=== PATIENT | female | born 1955 | race Caucasian/White ===

== ENCOUNTER 2023-02-20 14:10 | Emergency (ER) | payer MEDICARE, BC, SELFPAY ==
[2023-02-20 14:32] VITALS: BP 124/84; PULSE 85; RESP 16; TEMP 36.3; O2SAT 95
--- NOTE | 2023-02-20 14:49 | ED.EAR ---
HPI - Ear Problem General Chief complaint: Ear Stated complaint: hearing prob History of Present Illness HPI Narrative: 67-year-old female presents to the [facility] today complaining of right intermittent ear pain and difficulty hearing out of her right ear. Patient stated the pain started on in the evening while she was just sitting at home. Patient denies any recent swimming or being in any dirty water. Patient states since then she has had increased ringing in her right ear and hearing loss. Patient states that is gotten worse to the point that she has developed dizziness when she starts walking. Patient denies any congestion, sore throat, fever, chills, or any other complaints. Patient has been using Q-tips at home with minimal relief. Related Data Home Medications Medication Instructions Recorded Confirmed diphenhydramine HCl 25 mg tablet 50 mg PO QHS 11/24/22 02/20/23 (Benadryl Allergy) docusate sodium 100 mg capsule 200 mg PO BID 11/24/22 02/20/23 magnesium oxide 250 mg PO DAILY 11/24/22 02/20/23 dwacrqor-apcl-cdbwe acid 240 2 tablet PO DAILY 11/24/22 02/20/23 mcg-vit K 120 xcy-mphwag-fncs 293 tablet (Alive Women's 50 Plus (fruit-veg blend)) potassium gluconate 595 mg (99 mg) 595 mg PO BID 11/24/22 02/20/23 tablet Allergies Allergy/AdvReac Type Severity Reaction Status Date / Time ropinirole Allergy Unknown Verified 02/20/23 14:29 Review of Systems Review of Systems: CONSTITUTIONAL: Denies fever, chills, or sweats. EYES: Denies visual changes, redness, or discharge. ENT: Positive for right ear otalgia decreased hearing in the right ear. Patient also reports tinnitus to the right ear. CARDIOVASCULAR: Denies chest pain, palpitations, or edema. RESPIRATORY: Denies cough or dyspnea. GASTROINTESTINAL: Denies abdominal pain, nausea, vomiting, or diarrhea. GENITOURINARY: Denies dysuria or hematuria. SKIN: Denies rash or itching. MUSCULOSKELETAL: Denies back pain, joint pain, or myalgia. NEUROLOGIC: Denies headache, numbness, or weakness. Reports dizziness Pertinent positives per HPI. [facility] Social History Social History (Updated 11/24/22 @ 09:23 by Leatha Mcclelland, [facility]) Smoking packs per day: 0.5 Smoking cigarettes per day: 10.0 Years smoked: 45 Smoking pack-years: 22.50 Smoking status: Current every day smoker Tobacco type: cigarettes Lack of Transportation: No Lack of Food: Never True Current Housing: I Have Housing Concerned About Future Housing: No Difficulty Paying Gas/Electric Bills: No Difficulty Paying for Meds: No Currently Unemployed: No Education: Bachelor's Degree Difficulty w/ Childcare or Family Care: No Comments At the time of my signature, I reviewed and agree with the nursing past medical, surgical, social, and family history. There is no relevant family history pertinent to the patient complaint. Exam Narrative: GENERAL: This is a well-nourished, well-developed patient, in no apparent distress. HEAD: normocephalic, atraumatic. EYES: Sclera clear/white. Vision is grossly intact. EARS: External ears normal, left auditory canal clear without drainage day. Right auditory canal is mild erythema neck with cerumen impaction, unable to visualize the tympanic membrane. left tympanic membrane is pearly mobley with a good cone of light without perforation. NOSE: External nose normal with no obvious nasal discharge, nares without redness, no rhinorrhea. THROAT: Mucous membranes moist, posterior pharynx clear. NECK: Neck supple, non-tender without lymphadenopathy, masses or thyromegaly. CARDIOVASCULAR: Regular rate and rhythm without murmurs, gallops, or rubs. RESPIRATORY: Clear to auscultation. Breath sounds equal bilaterally. No wheezes, rales, or rhonchi. GASTROINTESTINAL: Abdomen soft, non-tender, nondistended. Bowel sounds are active. No hepato-splenomegaly, or palpable masses. No guarding. SKIN: warm, intact with no susp
== END 2023-02-20 15:12 | disposition home or self-care (01) ==
PROVIDERS: Emergency Provider Nurse Practitioner Family
DX: H60.501 Unspecified acute noninfective otitis externa, right ear (principal); H61.21 Impacted cerumen, right ear; F17.210 Nicotine dependence, cigarettes, uncomplicated
CPT/HCPCS: 69210; 99213; G0463

== ENCOUNTER 2023-03-29 10:13 | Outpatient (CLI) | payer BC, MEDICARE, SELFPAY ==
[2023-03-29 19:24] LABS: Iron 103 ug/dL (37-170)
[2023-03-29 19:28] LABS: Percent Iron Saturation 28 % (20-50)
[2023-03-29 19:48] LABS: Vitamin D 25 Hydroxy 76.8 ng/mL
[2023-03-29 19:49] LABS: Alanine Aminotransferase 25 U/L (6-35); Albumin Level 3.9 g/dL (3.5-5.1); Alkaline Phosphatase 80 U/L (38-126); Anion Gap 4 mmol/L (8-16); Aspartate Amino Transferase 25 U/L (14-36); Bilirubin,Total 0.4 mg/dL (0.2-1.3); Blood Urea Nitrogen 11 mg/dL (7-17); Calcium 9.4 mg/dL (8.4-10.2); Carbon Dioxide 30 mmol/L (22-30); Chloride 98 mmol/L (98-107); Cholesterol 302 mg/dL (0-200); Estimated Glomerular Filt Rate > 60; Glucose 82 mg/dL (65-110); HDL Direct 52 mg/dL; Potassium 4.4 mmol/L (3.4-5.0); Sodium 132 mmol/L (137-145); Triglycerides 96 mg/dL (<150)
[2023-03-29 20:00] LABS: LDL Cholesterol Direct 188 mg/dL
[2023-03-29 20:30] LABS: Basophils Absolute Auto 0.1 K/mm3 (0.0-0.1); Basophils Percent Auto 1.1 % (0.2-1.2); Eosinophils Absolute Auto 0.3 K/mm3 (0-0.3); Hematocrit 40.3 % (37.0-47.0); Hemoglobin 13.1 g/dL (12.0-15.0); Immature Granulocyte Absolute 0.02 K/mm3 (0.00-0.031); Immature Granulocyte Percent A 0.3 % (0-0.5); Lymphocytes Absolute Auto 2.37 K/mm3 (0.9-3.2); Lymphocytes Percent Auto 31.6 % (18.3-44.2); Mean Corpuscular HGB Conc 32.5 g/dl (32-36); Mean Corpuscular Hemoglobin 33.1 pg (26-34); Mean Corpuscular Volume 101.8 fl (80-100); Mean Platelet Volume 10.2 fl (7.4-10.4); Monocytes Absolute Auto 0.6 K/mm3 (0.1-0.6); Monocytes Percent Auto 7.3 % (2.6-8.5); Neutrophils Absolute Auto 4.2 K/mm3 (1.3-6.7); Neutrophils Percent Auto 55.7 % (45.5-73.1); Platelet Count Result 326 k/mm3 (150-375); Red Blood Count 3.96 M/mm3 (4.2-5.4); Red Cell Distribution Width 12.3 % (11.5-14.5); White Blood Count 7.5 K/mm3 (4.5-10.0)
[2023-03-31 22:29] LABS: Amphetamines NEGATIVE ng/mL (<500); Barbiturates NEGATIVE ng/mL (<300); Benzodiazepines POSITIVE ng/mL (<100); Cocaine Metabolite NEGATIVE ng/mL (<150); Marijuana Metabolite NEGATIVE ng/mL (<20); Methadone Metabolite NEGATIVE ng/mL (<100); Opiates NEGATIVE ng/mL (<100); Oxidant NEGATIVE mcg/mL (<200); pH 7.4 (4.5-9.0)
== END 2023-03-29 10:14 | disposition home or self-care (01) ==
PROVIDERS: Visit Provider Nurse Practitioner
DX: Z13.21 Encounter for screening for nutritional disorder (principal); F41.9 Anxiety disorder, unspecified; G25.81 Restless legs syndrome; Z13.220 Encounter for screening for lipoid disorders; Z79.899 Other long term (current) drug therapy
CPT/HCPCS: 36415; 80053; 80061; 80307; 82306; 82728; 83540; 83550; 85025

== ENCOUNTER 2023-06-10 17:10 | Emergency (ER) | payer BC, MEDICARE, SELFPAY ==
--- NOTE | ~2023-06-10 | XR_ITS ---
EXAMINATION: XR chest 2V DATE: 06/10/2023 17:50 INDICATION: Cough and congestion TECHNIQUE: PA and lateral views of the chest are obtained. COMPARISON: None available FINDINGS: There are minimal airspace opacities of the lung bases. No pleural effusion or pneumothorax . The cardiomediastinal silhouette is normal. There is moderate thoracic spondylosis. IMPRESSION: 1. Minimal bibasilar airspace opacities, consistent with atelectasis versus pneumonia. Reviewed, dictated and finalized at location F. IMPRESSION: 1. Minimal bibasilar airspace opacities, consistent with atelectasis versus pne umonia.
--- NOTE | 2023-06-10 17:12 | ED.GENADULT ---
HPI - General Adult General Chief complaint: Upper Respiratory Infection Stated complaint: Congestion, Cough, Lethargic, Headache Time Seen by Provider: 06/10/23 17:35 Source: patient, RN notes reviewed and old records reviewed Mode of arrival: ambulatory Limitations: no limitations History of Present Illness HPI narrative: 67-year-old female presents to the [facility] with complaints of productive cough, congestion, headache, fatigue. Denies fever Patient is a smoker Reports at home covid test Tuesday when symptoms started. Symptoms x4 days Onset (ago): day(s) (4) Related Data Home Medications Medication Instructions Recorded Confirmed diphenhydramine HCl 25 mg tablet 50 mg PO QHS 11/24/22 06/10/23 (Benadryl Allergy) docusate sodium 100 mg capsule 200 mg PO BID 11/24/22 06/10/23 magnesium oxide 250 mg PO DAILY 11/24/22 06/10/23 cuilzwje-ouoi-fhgji acid 240 2 tablet PO DAILY 11/24/22 06/10/23 mcg-vit K 120 nre-bftwlk-drlg 293 tablet (Alive Women's 50 Plus (fruit-veg blend)) potassium gluconate 595 mg (99 mg) 595 mg PO BID 11/24/22 06/10/23 tablet cholecalciferol (vitamin D3) 125 125 mcg PO DAILY 04/06/23 06/10/23 mcg (5,000 unit) capsule cyclobenzaprine 10 mg tablet 10 mg PO Q8H PRN muscle spasm 04/06/23 06/10/23 oxaprozin 600 mg tablet 600 mg PO BID PRN Pain (Scale 04/06/23 06/10/23 Score 1-3) Allergies Allergy/AdvReac Type Severity Reaction Status Date / Time ropinirole Allergy Unknown Verified 06/10/23 17:27 Review of Systems Review of Systems: All systems reviewed & are unremarkable except as noted in HPI and below Constitutional: Constitutional: Reports no additional constitutional complaints Eyes: Eyes: Reports no additional eye complaints ENT: Reports as per HPI Cardiovascular: Cardiovascular: Reports no additional cardiovascular complaints, Denies chest pain and Denies dyspnea Respiratory: Respiratory: Reports as per HPI, Reports chest congestion, Reports cough and Denies dyspnea Gastrointestinal: Gastrointestinal: Reports no additional gastrointestinal complaints, Denies abdominal pain, Denies nausea and Denies vomiting Musculoskeletal: Musculoskeletal: Reports no additional musculoskeletal complaints Integumentary/Breasts: Skin/Breast: Reports system reviewed and no additional complaints, except as docu Neurologic: Reports system reviewed and no additional complaints, except as documented Psychiatric: Psychiatric: Reports no additional psychiatric complaints Allergic/Immunologic: Allergic/Immunologic: Reports no additional allergic/immunologic complaints PMFSH Past Medical History Medical History (Updated 06/12/23 @ 13:57 by Joycelyn Bah APRN) Anxiety Depression Hyperlipidemia Restless leg syndrome Social History Social History Smoking packs per day: 0.5 Smoking cigarettes per day: 10.0 Years smoked: 45 Smoking pack-years: 22.50 Smoking status: Current every day smoker Tobacco type: cigarettes Lack of Transportation: No Lack of Food: Never True Current Housing: I Have Housing Concerned About Future Housing: No Difficulty Paying Gas/Electric Bills: No Difficulty Paying for Meds: No Currently Unemployed: No Education: Bachelor's Degree Difficulty w/ Childcare or Family Care: No Comments At the time of my signature, I reviewed and agree with the nursing past medical, surgical, social, and family history. There is no relevant family history pertinent to the patient complaint. Exam Const: General: cooperative, healthy appearing, comfortable, no acute distress, well developed, alert and well nourished Nutritional Appearance: well nourished Orientation/consciousness: patient oriented x3 Limitations: no limitations HENMT: Head: normal to inspection Ears: hearing grossly normal bilaterally, external ears normal, TM's normal bilaterally, EAC's normal, mastoids normal and no peria
[2023-06-10 17:24] VITALS: BP 132/85; PULSE 95; RESP 18; TEMP 36.2; O2SAT 94
== END 2023-06-10 18:29 | disposition home or self-care (01) ==
PROVIDERS: Emergency Provider Nurse Practitioner; PCP Internal Medicine
DX: J18.9 Pneumonia, unspecified organism (principal); Z20.822 Contact with and (suspected) exposure to COVID-19; F17.210 Nicotine dependence, cigarettes, uncomplicated; E78.5 Hyperlipidemia, unspecified; G25.81 Restless legs syndrome
CPT/HCPCS: 71046; 87426; 87804; 99213; C9803; G0463

== ENCOUNTER 2024-04-11 09:32 | Outpatient (CLI) | payer MEDICARE, SELFPAY ==
[2024-04-11 17:57] LABS: Cholesterol 254 mg/dL (0-200); HDL Direct 53 mg/dL; Triglycerides 97 mg/dL (<150)
[2024-04-11 18:07] LABS: LDL Cholesterol Direct 155 mg/dL
== END 2024-04-11 09:33 | disposition home or self-care (01) ==
LOC: ANHGOSHLAB 09:34
PROVIDERS: PCP Internal Medicine; Visit Provider Clinical Nurse Specialist
DX: E78.5 Hyperlipidemia, unspecified (principal); G25.81 Restless legs syndrome; R71.8 Other abnormality of red blood cells
CPT/HCPCS: 36415; 80061; 82728

== ENCOUNTER 2024-04-18 15:55 | Outpatient (CLI) | payer MEDICARE, SELFPAY ==
[2024-04-18 19:47] LABS: Basophils Absolute Auto 0.1 K/mm3 (0.0-0.1); Basophils Percent Auto 0.9 % (0.2-1.2); Eosinophils Absolute Auto 0.2 K/mm3 (0-0.3); Eosinophils Percent Auto 2.8 % (0-4.4); Hematocrit 42.2 % (37.0-47.0); Immature Granulocyte Absolute 0.03 K/mm3 (0.00-0.031); Immature Granulocyte Percent A 0.4 % (0-0.5); Lymphocytes Absolute Auto 3.05 K/mm3 (0.9-3.2); Lymphocytes Percent Auto 37.7 % (18.3-44.2); Mean Corpuscular HGB Conc 33.2 g/dl (32-36); Mean Corpuscular Hemoglobin 33.2 pg (26-34); Mean Platelet Volume 10.4 fl (7.4-10.4); Monocytes Absolute Auto 0.7 K/mm3 (0.1-0.6); Monocytes Percent Auto 8.8 % (2.6-8.5); Neutrophils Percent Auto 49.4 % (45.5-73.1); Platelet Count Result 345 k/mm3 (150-375); Red Blood Count 4.22 M/mm3 (4.2-5.4); Red Cell Distribution Width 12.4 % (11.5-14.5); White Blood Count 8.1 K/mm3 (4.5-10.0)
[2024-04-18 21:31] LABS: Alanine Aminotransferase 25 U/L (6-35); Albumin Level 4.8 g/dL (3.5-5.1); Alkaline Phosphatase 78 U/L (38-126); Anion Gap 11 mmol/L (4-12); Aspartate Amino Transferase 38 U/L (14-36); Bilirubin,Total 0.6 mg/dL (0.2-1.3); Blood Urea Nitrogen 7 mg/dL (7-17); Calcium 9.9 mg/dL (8.4-10.2); Carbon Dioxide 29 mmol/L (22-30); Chloride 95 mmol/L (98-107); Estimated Glomerular Filt Rate > 60; Glucose 89 mg/dL (65-110); Potassium 3.8 mmol/L (3.4-5.0); Sodium 135 mmol/L (137-145)
[2024-04-18 22:20] LABS: Vitamin D 25 Hydroxy 56.5 ng/mL
[2024-04-28 07:14] LABS: Apolipoprotein B 135 mg/dL
== END 2024-04-18 15:56 | disposition home or self-care (01) ==
LOC: ANHGOSHLAB 15:57
PROVIDERS: PCP Internal Medicine; Visit Provider Nurse Practitioner
DX: E55.9 Vitamin D deficiency, unspecified (principal); E78.5 Hyperlipidemia, unspecified; E87.1 Hypo-osmolality and hyponatremia; G25.81 Restless legs syndrome
CPT/HCPCS: 36415; 80053; 82172; 82306; 84443; 85025

== ENCOUNTER 2024-09-27 11:38 | Emergency (ER) | payer MEDICARE, SELFPAY ==
--- NOTE | 2024-09-27 11:42 | ED_ITS ---
HPI - URI/Sore Throat General Chief Complaint: Upper Respiratory Infection Stated Complaint: flu symptoms Time Seen by Provider: 09/27/24 11:43 Source: patient Mode of arrival: ambulatory Limitations: no limitations History of Present Illness HPI Narrative: Heidi is a 68-year-old female patient presenting to the clinic today with complaints of flu-like symptoms x1 days. She reports she has been having body aches, cough, nasal drainage, and weakness. Symptoms started yesterday. Denies any known fever or chills. States she feels more short of breath with exertion. Denies any chest pain. She denies any history of COPD or asthma but she is a current smoker. Smokes half a pack per day for over 20 years MD elicited complaint: cough, nasal congestion and other (Weakness, headache, body aches, nasal drainage) Related Data Home Medications ?Medication ?Instructions ?Recorded ?Confirmed ?Last Taken ?Type diphenhydramine HCl 25 mg tablet 50 mg PO QHS 11/24/22 04/18/24 Unknown History (Benadryl Allergy) docusate sodium 100 mg capsule 200 mg PO BID 11/24/22 04/18/24 Unknown History magnesium oxide 250 mg PO DAILY 11/24/22 04/18/24 Unknown History ikgipkdm-mthu-gcspf acid 240 2 tablet PO DAILY 11/24/22 04/18/24 Unknown History mcg-vit K 120 gwj-fckzro-vaby 293 tablet (Alive Women's 50 Plus (fruit-veg blend)) potassium gluconate 595 mg (99 mg) 595 mg PO BID 11/24/22 04/18/24 Unknown History tablet cholecalciferol (vitamin D3) 125 125 mcg PO DAILY 04/06/23 04/18/24 Unknown History mcg (5,000 unit) capsule oxaprozin 600 mg tablet 600 mg PO BID PRN Pain (Scale 04/06/23 04/18/24 Unknown History Score 1-3) Allergies Allergy/AdvReac Type Severity Reaction Status Date / Time ropinirole Allergy Unknown Verified 09/27/24 11:47 Review of Systems Review of Systems: Pertinent positives per HPI. Patient denies any fever, chills, rash, headache, visual changes, dizziness, chest pain, palpitations, nausea, vomiting, diarrhea, constipation, abdominal pain, or any urinary issues. [facility] Past Medical History Medical History Hyperlipidemia Depression Anxiety Restless leg syndrome Social History Social History Smoking packs per day: 0.5 Smoking cigarettes per day: 10.0 Years smoked: 45 Smoking pack-years: 22.50 Smoking status: Current every day smoker Tobacco type: cigarettes Lack of Transportation: No Lack of Food: Never True Current Housing: I Have Housing Concerned About Future Housing: No Difficulty Paying Gas/Electric Bills: No Difficulty Paying for Meds: No Currently Unemployed: No Education: Bachelor's Degree Difficulty w/ Childcare or Family Care: No Comments At the time of my signature, I reviewed and agree with the nursing past medical, surgical, social, and family history. There is no relevant family history pertinent to the patient complaint. Exam Narrative: General: Well-developed, well nourished, in no apparent distress Head: Normocephalic, atraumatic Eyes: Pupils equally round and reactive to light bilaterally, EOM intact, sclera and conjunctive clear, no discharge, lids normal Ears: TMs intact and clear, ear canals clear, no drainage, grossly hearing normal. Nose: Nares patent, clear nasal discharge, no inflammation, no sinus tenderness. Mouth: Oral pharynx without lesions or masses, good dentition, MMM. Neck: Supple, trachea midline, no enlargement of anterior or posterior cervical nodes, no thyroid masses or goiter palpable. Cardio: Regular rate and rhythm, s1 and s2 normal, no murmur appreciated. Resp: Faint wheezing and rhonchi, no rales or rubs Course Course Emergency Course: Portions of this record may have been created with voice recognition software. Level of Care: Express Care Visit Vital Signs Vital signs: Vital Signs Temperature 36.0 C L 09/27/24 11:46 Pulse Rate 88 09/27/24 11:46 Respiratory Rate 18 09/27/24 11:46 Blood Pressure 136/72 09/27/24 11:46 Pulse Oximetry 96 09/27/24 11:46 Oxygen Delivery Room Air 09/27/24 11:46 Temperature 36.0 C L 09/27/24 11:46 Pulse Rate 88 09/27/24 11:46 Respiratory Rate 18 09/27/24 11:46 Blood Pressure 136/72 02/13/25 11:46 Pulse Oximetry 96 09/27/24 11:46 Oxygen Delivery Room Air 09/27/24 11:46 Vital signs reviewed MDM - URI/Sore Throat MDM Narrative Medical decision making narrative: At the time of visit patient is resting comfortably on the exam table. Patient appears to be nontoxic. Labs: Influenza and COVID testing was performed all testing was negative. Plan: I suspect patient has bronchitis. Prescription for prednisone, azithromycin, and albuterol inhaler was sent to the pharmacy. Supportive measures were discussed with the patient and they voiced understanding discharge instructions and agrees to treatment plan. Return precautions reviewed. Differential Diagnosis Differential diagnosis: Likely upper respiratory infection, otitis media, sinusitis, viral infection, bronchitis, influenza, pharyngitis and other (COVID) Lab Data Labs: Lab Results 09/27/24 Range/Units 12:10 POC Influenza A Ag Negative (Negative) POC Influenza B Ag Negative (Negative) POC SARS CoV-2 Ag Negative (Negative) Discharge Plan Discharge Clinical Impression: Bronchitis Patient Disposition: Home, Self-Care Condition: Stable Instructions: Antibiotic Form, Acute Bronchitis (ED) Additional Instructions: COVID and influenza testing was negative in the clinic today Take medications as prescribed-albuterol inhaler, prednisone, azithromycin May take DayQuil/NyQuil for symptoms. Increase fluids and stay well hydrated Tylenol/motrin for pain/fever Flonase and OTC antihistamines as directed Vicks vapor rub to open sinuses Sinus rinses for congestion Cepacol spray, cough drops, throat lozenges, warm tea with honey/lemon, gargle salt water to soothe throat BRAT diet for diarrhea Clear liquids x 24 hours then advance as tolerated for nausea/vomiting Go to the ED if you develop a worsening in your condition- high fever not controlled by Tylenol or Motrin, dehydration, weakness, lethargy, shortness of breath, or chest pain. Follow up with your PCP in 3-5 days if symptoms persist. Patient Language: Malian Prescriptions: New prednisone 20 mg tablet 40 mg PO DAILY 5 Days Qty: 10 0RF azithromycin 250 mg tablet See Rx Instructions .ROUTE .COMPLEX Qty: 6 0RF Rx Instructions: For 250 mg dose pack: take 500 mg today (day 1), then 250 mg for 4 days (days 2-5) albuterol sulfate 90 mcg/actuation HFA aerosol inhaler 2 puff inhalation Q4-6H PRN (Reason: shortness of breath or wheezing) 30 Days Qty: 8.5 0RF No Action (DME) Aerochamber MV Spacer See Rx Instructions .Route Qty: 1 0RF Rx Instructions: As directed cholecalciferol (vitamin D3) 125 mcg (5,000 unit) capsule 125 mcg PO DAILY oxaprozin 600 mg tablet 600 mg PO BID PRN (Reason: Pain (Scale Score 1-3)) diphenhydramine HCl [Benadryl Allergy] 25 mg tablet 50 mg PO QHS docusate sodium 100 mg capsule 200 mg PO BID potassium gluconate 595 mg (99 mg) tablet 595 mg PO BID magnesium oxide 250 mg magnesium tablet 250 mg PO DAILY Alive Women's 50 Plus (blend) 240-120-300 mcg tablet 2 tablet PO DAILY albuterol sulfate 90 mcg/actuation HFA aerosol inhaler 1 puff inhalation Q4H PRN (Reason: shortness of breath or wheezing) Qty: 8.5 1RF pantoprazole 40 mg tablet,delayed release (DR/EC) 40 mg PO DAILY Qty: 90 0RF Nexletol 180 mg tablet 180 mg PO DAILY Qty: 90 0RF Rx Instructions: PLEASE HAVE LABS DONE FOR FURTHER REFILLS clonazepam 0.5 mg tablet 0.5 mg PO QHS PRN (Reason: sleep) Qty: 30 0RF Rx Instructions: administer 30 minutes before bedtime Trintellix 10 mg tablet 10 mg PO DAILY Qty: 90 0RF Follow-up/Referrals: Sugey Lopez [employer] [Primary Care Provider] - Time of Disposition: 12:11 Quality NIHSS Nursing Documentation ED NIHSS nursing documentation: reviewed/agree
--- OUTSIDE RECORDS SUMMARY | 2024-09-27 11:42 | XMS_ITS | Continuity of Care Document ---
Author Organization [facility] Address [address] [place] [address] Phone Care Team Providers Care Financial Analyst Accountant Name Role Phone Gianhussain Miguel MARIN Unavailable Unavailable Allergies, Adverse Reactions, Alerts Substance Reaction Status Criticality adhesive tape Active No Information gabapentin Active No Information Medications Medication Instructions Dosage Effective Dates (start - stop) Status Comments diclofenac sodium 50 mg tablet,delayed release take 1 tablet by oral route 1 times every day - Active Daypro 600 mg tablet take 1 tablet by oral route every day 600 MG - Active Devils Elbow 5 mg-325 mg tablet take 1 tablet by oral route every 6 hours as needed for pain - Active Ultram 50 mg tablet take 1 tablet by oral route every 6 hours as needed - Active Voltaren Gel/5 Pack Topical CREAM (GM) APPLY 4G TO AFFECTED AREA 2 X DAILY - Active XANAX (unknown strength) Not Available - Active LEXAPRO (unknown strength) take 10 milliliter by oral route every day Not Available - Active FAMOTIDINE (unknown strength) infuse by intravenous route every 12 hours Not Available - Active CLONAZEPAM (unknown strength) take 1 tablet by oral route 3 times every day Not Available - Active ESCITALOPRAM OXALATE (unknown strength) take 10 milliliter by oral route every day Not Available - Active POTASSIUM GLUCONATE (unknown strength) Not Available - Active MP MAGNESIUM (unknown strength) Not Available - Active VITAMIN D2 (unknown strength) take 1 capsule by oral route every week Not Available - Active Procedures Procedure Date Spine Xray Lumbosacral Min Of 4 Views Ja Office/outpatient visit,est, mod 2014 Office/outpatient visit,est, mod 2012 MRI Lumbar Spine X-ray exam of pelvis, 1-2 views 013 X-ray Exam Of Hip, Complete 3+ Views Mar X-ray exam of neck spine2-3 views Office/outpatient visit,est, mod 2012 X-ray exam of foot, complete No Charge Xray Office/outpatient visit,est, mod 2010 Dual Energy X-ray Absorptimetry (DXA) Lester ne Density Physical therapy evaluation Ultrasound, each 15 minutes Physical Tx excercises each 15 min Ultrasound, each 15 minutes Office/outpatient visit,est, low 2009 X-ray exam of shoulder, complete 2009 Office/outpatient visit,est, low 2006 Office/outpatient visit,est, mod 2006 Office/outpatient visit,new, [facility] 2006 X-ray exam of humerus, 2+ views 007 X-ray exam of forearm, 2views 7 Office/outpatient visit,new, [facility] 2006 Advance Directives Directive Yes / No Effective Date File Name No Information Encounters Encounter Description Practice Location Reason(s) For Visit Diagnoses Date Provider Providers Copied on Encounter [facility], [address] [place] [address], [id number], tel:[phone] [facility] No Information 5-201 5 Koth Miguel. [address], [place], [place], [id number] , [place]. tel:[phone] Office/outpat ient visit,est, mod [facility], [address] [place] [address], [id number], tel:[phone] [facility] lumbar spine (chief complaint) Lumbago - Low Back PainLumbar strain 7-201 5 Koth Miguel. [address], [place], [place], [id number] , . tel:[phone] [facility], [address] [place] [address], [id number], tel:[phone] [facility] No Information Jul-2 3 Mathieu Diaz. [address] [place] [address], [id number] , . tel:[phone] Office/outpat ient visit,est, mod [facility], [address] [place] [address], [id number], tel:[phone] [facility] lumbar spine pain (chief complaint) Lumbago - Low Back Pain Sep-0 3 3 Uriel Francis. [address] [place] [address], [id number] , . tel:[phone] [facility], [address] [place] [address], [id number], tel:[phone] [facility] Lumbago - Low Back PainScoliosis, Idiopathic (Kyphoscoliosi s) Mar- 2- 3 Jeanine Tay. [address] [place] [address], [id number] , . [phone] Referring Provider: Jasvir Busby, [address] [place] [address], [id number] . tel:[phone] Office/outpat ient visit,est, [facility], [address] [place] [address], [id number], tel:[phone] [facility] Billing ReviewBilling ReviewScoliosi s, Idiopathic (Kyphoscoliosi s)Lumbago - Low Back Pain Mar-0 6 3 Jeanine Tay. [address] [place] [address], [id number] , . [phone] [facility], [address] [place] [address], [id number], tel:[phone] [facility] No Information Sep-0 5-201 2 Mariya Forman. [address] [place] [address], [id number] , . tel:[phone] Referring Provider: Ana Yi, [address] [facility], [place], [address] . tel:[phone] [facility], [address] [place] [address], [id number], tel:[phone] [facility] No Information Mar-0 6201 2 Mariya Forman. [address] [place] [address], [id number] , . tel:[phone] Referring Provider: Ana Yi, [address], [place], [address] . tel:[phone] Office/outpat ient visit,[facility], [facility], [address] [place] [address], [id number], tel:[phone] [facility] No Information Nov-0 1 Mariya Forman. [address] [place] [address], [id number] , [place]. tel:[phone] [facility], [address] [place] [address], [id number], tel:[phone] [facility] No Information Nov0 9201 0 Ricardo Forman. [address] [place] [address], [id number] , . tel:[phone] Office/outpat ient visit,[facility], [address] [place] [address], [id number], tel:[phone] [facility] No Information Nov0 8201 0 Ricardo Forman. [address] [place] [address], [id number] , . tel:[phone] Office/outpat ient visit,[facility], [address] [place] [address], [id number], tel:[phone] [facility] No Information 200 7 Sarah Fernandes. [address] [place], [place], [id number] , . tel: [phone] Office/outpat ient visit,[facility], [address] [place] [address], [id number], tel:[phone] [facility] No Information 7 Ricardo Forman. [address] [place], [place], [id number] , . tel:[phone] Office/outpat ient visit,[facility], [address] [place] [address], [id number], tel:[phone] [facility] No Information 7 Ricardo Forman. [address] [place], [place], [id number] , . tel:[phone] Office/outpat ient visit,[facility], [address] [place] [address], [id number], tel:[phone] [facility] No Information 7 Sarah Fernandes. [address] [place], [place], [id number] , [place]. tel: [phone] Family History Family Member Type Diagnosis Age At Onset Mother Problem (finding) Maternal history of marino betes mellitus Father Problem (finding) Cancer, unknown Payers Payer name Insurance type Covered green party ID Authorlalaa ana laura(s) [employer] Of [facility] [id number] Social History Type Description Quantity Date Captured Comments Sex Female Smoking Status No Information Chief Complaint And Reason For Visit No Information Reason For Referral Reason For Referral No Information Plan Of Treatment Date Type Action Status Future Order: Radiology Order Sp ine Xray Lumbosacral Min Of 4 Views (94094), Ordered on: Ordered History Of Present Illness Encounter Date Complaint History Of Prese nt Illness lumbar spine Ms Murray is a [age] year old female who complains of lumbar spine. She presents with pain. She states that the symptoms have been acute non-traumatic and began on 09/08/2014. She indicates the injury occurred Walking dog. Heidi states that the symptoms began as the result of a sudden movement. The symptoms occur constantly. The problem is worse. Currently the patient states that the symptoms are severe. The pain is described as dull, sharp and throbbing. The symptoms occur continuously. The patient indicates that the pain is located in the lower back. The pain radiates then to the lower extremities and shoulder blade. lumbar spine pain Functional Status Date Functional Assessmen t No Information Instructions Date Instruction Additional Infor neelam Patient was educated on the diagnosis and treatment plan. Related to Lumbar strain Assessments Type Assessment Date No Information Patient Care Teams Name Effective Dates (start - stop) Status Members No Information
--- OUTSIDE RECORDS SUMMARY | 2024-09-27 11:44 | XMS_ITS | Continuity of Care Document ---
Author Organization [facility] Address [address] [place] [address] Phone Care Team Providers Care Area Representative Name Role Phone Gianhussain Miguel MARIN Unavailable [...] route every day 600 MG - Active [place] 5 mg-325 mg tablet take 1 tablet [...] 2006 Office/outpatient visit,est, mod 2006 [place] [facility] [place] exam of humerus, 2+ views 007 X-ray exam of forearm, 2views 7 [place] [facility] [place] Advance Directives Directive Yes / No Effective Date File Name No Information Encounters Encounter Description Practice Location Reason(s) For Visit Diagnoses Date Provider Providers Copied on Encounter [facility], [address] [place] [address], [id number], tel:[phone] [facility] No Information 5-201 5 Koth Miguel. [address], [place], [place], [id number] , [place]. tel:[phone] Office/outpat ient visit,est, mod [facility], [address] [place] [address], [id number], tel:[phone] [facility] lumbar spine (chief complaint) Lumbago - Low Back PainLumbar strain 7-201 5 Koth Miguel. [address], [place], [place], [id number] , . tel:[phone] [facility], [address] [place] [address], [id number], tel:[phone] [facility] No Information Jul-2 3 Mathieu Diaz. [address] [place] [address], [id number] , . tel:[phone] Office/outpat ient visit,est, mod [facility], [address] [place] [address], [id number], tel:[phone] [facility] lumbar spine pain (chief complaint) Lumbago - Low Back Pain Sep-0 3 3 Uriel Francis. [address] [place] [address], [id number] , . tel:[phone] [facility], [address] [place] [address], [id number], tel:[phone] [facility] Lumbago - Low Back PainScoliosis, Idiopathic (Kyphoscoliosi s) Mar- 2- 3 Jeanine Tay. [address] [place] [address], [id number] , . [phone] Referring Provider: Jasvir Busby, [address] [place] [address], [id number] . tel:[phone] Office/outpat ient visit,est, [facility], [address] [place] [address], [id number], tel:[phone] [facility] Billing ReviewBilling ReviewScoliosi s, Idiopathic (Kyphoscoliosi s)Lumbago - Low Back Pain Mar-0 6 3 Jeanine Tay. [address] [place] [address], [id number] , . [phone] [facility], [address] [place] [address], [id number], tel:[phone] [facility] No Information Sep-0 5-201 2 Mariya Forman. [address] [place] [address], [id number] , . tel:[phone] Referring Provider: Ana Yi, [address] [facility], [place], [address] . tel:[phone] [facility], [address] [place] [address], [id number], tel:[phone] [facility] No Information Mar-0 6201 2 Mariya Forman. [address] [place] [address], [id number] , . tel:[phone] Referring Provider: Ana Yi, [address], [place], [address] . tel:[phone] Office/outpat ient visit,[facility], [facility], [address] [place] [address], [id number], tel:[phone] [facility] No Information Nov-0 1 Mariya Forman. [address] [place] [address], [id number] , [place]. tel:[phone] [facility], [address] [place] [address], [id number], tel:[phone] [facility] No Information Nov0 9201 0 Ricardo Forman. [address] [place] [address], [id number] , . tel:[phone] Office/outpat ient visit,[facility], [address] [place] [address], [id number], tel:[phone] [facility] No Information Nov0 8201 0 Ricardo Forman. [address] [place] [address], [id number] , . tel:[phone] Office/outpat ient visit,[facility], [address] [place] [address], [id number], tel:[phone] [facility] No Information 200 7 Sarah Fernandes. [address] [place], [place], [id number] , . tel: [phone] Office/outpat ient visit,[facility], [address] [place] [address], [id number], tel:[phone] [facility] No Information 7 Ricardo Forman. [address] [place], [place], [id number] , . tel:[phone] Office/outpat ient visit,[facility], [address] [place] [address], [id number], tel:[phone] [facility] No Information 7 Ricardo Forman. [address] [place], [place], [id number] , . tel:[phone] Office/outpat ient visit,[facility], [address] [place] [address], [id number], tel:[phone] [facility] No Information 7 Sarah Fernandes. [address] [place], [place], [id number] , [place]. tel: [phone] Family History Family Member Type Diagnosis Age At Onset Mother Problem (finding) Maternal history of marino betes mellitus Father Problem (finding) Cancer, unknown Payers Payer name Insurance type Covered alliance party ID Authorlalaa ana laura(s) BCBS Of [facility] [id number] Social History Type Description Quantity Date Captured Comments Sex Female Smoking Status No Information Chief Complaint And Reason For Visit No Information Reason For Referral Reason For Referral No Information Plan Of Treatment Date Type Action Status Future Order: Radiology Order Sp ine Xray Lumbosacral Min Of 4 Views (73773), Ordered on: Ordered History Of Present Illness [...]
[2024-09-27 11:46] VITALS: BP 136/72; PULSE 88; RESP 18; TEMP 36; O2SAT 96
[2024-09-27 12:12] LABS: EDCOVIDSCREEN Negative (Negative); EDINFLUASCREEN Negative (Negative); EDINFLUBSCREEN Negative (Negative)
== END 2024-09-27 12:23 | disposition home or self-care (01) ==
PROVIDERS: Emergency Provider Nurse Practitioner Family; PCP Nurse Practitioner
DX: J40 Bronchitis, not specified as acute or chronic (principal); Z20.822 Contact with and (suspected) exposure to COVID-19; F17.210 Nicotine dependence, cigarettes, uncomplicated; E78.5 Hyperlipidemia, unspecified; G25.81 Restless legs syndrome; F41.9 Anxiety disorder, unspecified
CPT/HCPCS: 87426; 87804; 99213; G0463

== ENCOUNTER 2024-10-06 12:20 | Emergency (ER) | payer MEDICARE, SELFPAY ==
--- NOTE | ~2024-10-06 | XR_ITS ---
EXAMINATION: XR chest 2V DATE: 10/06/2024 13:19 INDICATION: Cough and shortness of breath TECHNIQUE: PA and lateral views of the chest were obtained. COMPARISON: Chest radiograph dated 06/10/2023 FINDINGS: The lungs are clear with no focal airspace opacities, pulmonary edema, pleural effusion or pneumothor ax. Heart size is normal with prominent left paracardial fat pad. Severe thoracic and upper lumbar sp ondylosis with mild kyphosis. IMPRESSION: 1. No acute cardiopulmonary disease. Reviewed, dictated and finalized at location A. ING MACHINE FEEDER
[2024-10-06 12:36] VITALS: BP 144/86; PULSE 90; RESP 16; TEMP 36.6; O2SAT 93
--- NOTE | 2024-10-06 12:57 | ED.URI ---
HPI - URI/Sore Throat General Chief Complaint: Upper Respiratory Infection Stated Complaint: WEAKNESS/SOB/NO ENERGY Time Seen by Provider: 10/06/24 12:58 Source: patient, RN notes reviewed and old records reviewed Mode of arrival: ambulatory Limitations: no limitations History of Present Illness HPI Narrative: 68 year old female presents to express care with complaints of having no energy,productive cough, head congestion, headache, no sore throat or any fever since the 12 of this month. Patient reports that she was given a steroid and also Azithromycin which she completed and still wasn't feeling any better. Patient reports that she was started on Cefdinir on the of this month which she is presently taking but states still isn't improving. Patient has albuterol inhaler but has not been using. Patient reports that she has been using Flonase. Patient states that she has never been diagnosed with asthma or COPD but has been smoking cigarettes for 40 years. MD elicited complaint: cough, rhinorrhea, nasal congestion and other (headache) Pertinent past history: other (tobacco abuse) Onset (ago): day(s) (10 days) Severity: moderate Able to tolerate fluids by mouth: Yes Treatments prior to arrival: antibiotics and other (steroid) Related Data Home Medications ?Medication ?Instructions ?Recorded ?Confirmed ?Last Taken ?Type diphenhydramine HCl 25 mg tablet 50 mg PO QHS 11/24/22 10/06/24 Unknown History (Benadryl Allergy) docusate sodium 100 mg capsule 200 mg PO BID 11/24/22 10/06/24 Unknown History magnesium oxide 250 mg PO DAILY 11/24/22 10/06/24 Unknown History fwprvjbz-wfky-enpuc acid 240 2 tablet PO DAILY 11/24/22 10/06/24 Unknown History mcg-vit K 120 [id number] 293 tablet (Alive Women's 50 Plus (fruit-veg blend)) potassium gluconate 595 mg (99 mg) 595 mg PO BID 11/24/22 10/06/24 Unknown History tablet cholecalciferol (vitamin D3) 125 125 mcg PO DAILY 04/06/23 10/06/24 Unknown History mcg (5,000 unit) capsule oxaprozin 600 mg tablet 600 mg PO BID PRN Pain (Scale 04/06/23 10/06/24 Unknown History Score 1-3) cefdinir 300 mg capsule 300 mg PO Q12H 10/06/24 10/06/24 Unknown History promethazine 12.5 mg tablet 12.5 mg PO Q12H PRN nausea and 10/06/24 10/06/24 Unknown History vomiting Allergies Allergy/AdvReac Type Severity Reaction Status Date / Time ropinirole Allergy Unknown Verified 10/06/24 12:27 Review of Systems Review of Systems: CONSTITUTIONAL: Reports malaise, no chills, sweats, or fever. EYES: Denies visual changes, redness, or discharge. ENT: Reports rhinorrhea, congestion, sinus pain, no otalgia and no sore throat. CARDIOVASCULAR: Denies chest pain, palpitations, or edema. RESPIRATORY: Reports productive cough.? Reports some dyspnea. GASTROINTESTINAL: Denies abdominal pain, nausea, vomiting, diarrhea SKIN: Denies rash or itching. MUSCULOSKELETAL: Denies myalgia. NEUROLOGIC: Reports headache. All systems reviewed & are unremarkable except as noted in HPI and below PMFSH Past Medical History Medical History Hyperlipidemia Depression Anxiety Restless leg syndrome Social History Social History Smoking packs per day: 0.5 Smoking cigarettes per day: 10.0 Years smoked: 45 Smoking pack-years: 22.50 Smoking status: Current every day smoker Tobacco type: cigarettes Lack of Transportation: No Lack of Food: Never True Current Housing: I Have Housing Concerned About Future Housing: No Difficulty Paying Gas/Electric Bills: No Difficulty Paying for Meds: No Currently Unemployed: No Education: Bachelor's Degree Difficulty w/ Childcare or Family Care: No Comments At time of signature, agree with nursing past medical, surgical, social and family history. There is no relevant family history pertinent to the presenting complaint Exam Narrative: GENERAL: Well-appearing, well-nourished, and in no acute distress. HEAD: Normocephalic EYES: PERRLA, conjunctivae clear ENT: Nares clear, turbinates edematous and erythematous, clear discharge. Mucous membranes moist. TM pearly mobley with dull light reflex bilaterally; no tragal tenderness. Oropharynx erythematous without lesions. Tonsils not enlarged and without exudate, no drooling, no hoarseness, no trismus, uvula midline.post nasal drainage NECK: Supple. No lymphadenopathy CHEST: Decreased breath sounds on auscultation, breath sounds equal. No wheezing, rhonchi, rales, or stridor. No respiratory distress, speaks in full sentences.productive cough SAO2 93% on room air HEART: Regular rate and rhythm. No murmur heard. SKIN: Warm, dry, no rash. NEURO: Alert and oriented x3. PSYCH: Normal mood and affect Course Course Emergency Course: Patient is aware of diagnosis, understands and agrees to treatment plan.? Anticipatory guidance given.? Patient agrees to follow-up as directed and is aware of reasons to seek care at the emergency department. Portions of this record may have been created with voice recognition software Level of Care: Express Care Visit Vital Signs Vital signs: Vital Signs Temperature 36.6 C 10/06/24 12:36 Pulse Rate 90 10/06/24 12:36 Respiratory Rate 16 10/06/24 12:36 Blood Pressure 144/86 H 10/06/24 12:36 Pulse Oximetry 93 10/06/24 12:36 Temperature 36.6 C 10/06/24 12:36 Pulse Rate 90 10/06/24 12:36 Respiratory Rate 16 10/06/24 12:36 Blood Pressure 144/86 H 10/06/24 12:36 Pulse Oximetry 93 10/06/24 12:36 Reviewed MDM - URI/Sore Throat MDM Narrative Medical decision making narrative: Differential diagnosis considered: Roper virus, strep pharyngitis, allergic rhinitis, upper respiratory tract infection, sinusitis, rhinosinusitis, nasopharyngitis. viral pharyngitis, otitis media, otitis externa, pneumonia, bronchitis, viral cough syndrome, viral syndrome, and influenza.? Exam findings show no acute concerns or changes; patient is non-toxic appearing and is in no distress.? Patient is appropriate for outpatient treatment and follow-up. Differential Diagnosis Differential diagnosis: Likely upper respiratory infection, viral infection, bronchitis and other (tobacco abuse) Medical Records Attestation: I reviewed the patient's medical records. Lab Data Attestation: I reviewed the patient's lab results. Imaging Data Attestation: I personally reviewed and interpreted this imaging study as follows: My impression: no acute cardiopulmonary disease Radiologist's impression: [facility] [address] [place] [address] 924 XRay Report Signed Patient: Heidi Murray : 1955 MR#: [id number] Age: 68 Acct:[id number] Loc: [facility] ADM Date: 10/06/24Attending Dr: Ordering Physician: Victorina Garrett APRN Date of Service: 10/06/24 Procedure(s): XR chest 2V Accession Number(s): [id number] cc: Victorina Garrett APRN; Sugey Lopez APRN~ EXAMINATION: XR chest 2V DATE: 10/06/2024 13:19 INDICATION: Cough and shortness of breath TECHNIQUE: PA and lateral views of the chest were obtained. COMPARISON: Chest radiograph dated 06/10/2023 FINDINGS: The lungs are clear with no focal airspace opacities, pulmonary edema, pleural effusion or pneumothorax. Heart size is normal with prominent left paracardial fat pad. Severe thoracic and upper lumbar spondylosis with mild kyphosis. IMPRESSION: 1. No acute cardiopulmonary disease. Reviewed, dictated and finalized at location A. [employer] EXECUTIVE SALES REPRESENTATIVE Please be advised this is a medical document. It is intended for [id number] communication. It is written in medical language and may contain unfamiliar abbreviations or verbiage. Medical documents are intended to carry relevant information, facts as evident, and the clinical opinion of the practitioner at the time of the encounter. This report may have been done utilizing a voice recognition system. Attempts have been made to correct errors. However, there may be uncorrected grammatical, spelling, and recognition errors present. The file time of this note does not necessarily represent the time of service. Dictated By: Joey Rossi MD 10/06/24 1321 Signed By: <Electronically signed by Joey Rossi MD in OV> Critical Care Time Critical Care Time Critical Care Time: No Discharge Plan Discharge Clinical Impression: Upper respiratory infection with cough and congestion, Tobacco abuse Patient Disposition: Home, Self-Care Condition: Stable Instructions: Upper Respiratory Infection (ED), Shortness of Breath (ED) Additional Instructions: Increase fluids especially juices and water Gewn-jhn-bquwzia cough and cold medicine of your choice for your symptoms Atrovent inhaler as prescribed Continue your inhaler/nebulizer as directed Steroids as directed--take with food heat to the face 20-30 minutes 4-6 times a day for pain Salt water gargles, throat lozenges or throat sprays as desired Antibiotic as directed--finished the medication If your symptoms persist, change or worsen significantly before you can contact your personal physician then please, without delay, go to the emergency department for further evaluation. Follow-up with PCP in 7-10 days or sooner if needed Follow up with PCP soon in regards to your blood pressure which is elevated above threshold for referral. Blood pressure above 120/80 may indicate pre-hypertension. Patient Language: Welsh Prescriptions: New Atrovent HFA 17 mcg/actuation HFA aerosol inhaler 2 puff inhalation TID Qty: 12.9 0RF prednisone 20 mg tablet 20 mg PO BID Qty: 10 0RF No Action albuterol sulfate 90 mcg/actuation HFA aerosol inhaler 2 puff inhalation Q4-6H PRN (Reason: shortness of breath or wheezing) 30 Days Qty: 8.5 0RF (DME) Aerochamber MV Spacer See Rx Instructions .Route Qty: 1 0RF Rx Instructions: As directed cefdinir 300 mg capsule 300 mg PO Q12H promethazine 12.5 mg tablet 12.5 mg PO Q12H PRN (Reason: nausea and vomiting) cholecalciferol (vitamin D3) 125 mcg (5,000 unit) capsule 125 mcg PO DAILY oxaprozin 600 mg tablet 600 mg PO BID PRN (Reason: Pain (Scale Score 1-3)) diphenhydramine HCl [Benadryl Allergy] 25 mg tablet 50 mg PO QHS docusate sodium 100 mg capsule 200 mg PO BID potassium gluconate 595 mg (99 mg) tablet 595 mg PO BID magnesium oxide 250 mg magnesium tablet 250 mg PO DAILY Alive Women's 50 Plus (blend) 240-120-300 mcg tablet 2 tablet PO DAILY albuterol sulfate 90 mcg/actuation HFA aerosol inhaler 1 puff inhalation Q4H PRN (Reason: shortness of breath or wheezing) Qty: 8.5 1RF pantoprazole 40 mg tablet,delayed release (DR/EC) 40 mg PO DAILY Qty: 90 0RF Nexletol 180 mg tablet 180 mg PO DAILY Qty: 90 0RF Rx Instructions: PLEASE HAVE LABS DONE FOR FURTHER REFILLS clonazepam 0.5 mg tablet 0.5 mg PO QHS PRN (Reason: sleep) Qty: 30 0RF Rx Instructions: administer 30 minutes before bedtime Trintellix 10 mg tablet 10 mg PO DAILY Qty: 90 0RF Follow-up/Referrals: Sugey Lopez [employer]ARET[employer] TESTER [Primary Care Provider] - Time of Disposition: 13:55 Quality Valentina Coma Scale Eyes: Open Verbal: Oriented and Alert Motor: Follows Commands Valentina Coma Total Score: 15
== END 2024-10-06 14:00 | disposition home or self-care (01) ==
PROVIDERS: Emergency Provider Registered Nurse; PCP Nurse Practitioner
DX: J06.9 Acute upper respiratory infection, unspecified (principal); R05.9 Cough, unspecified; F17.210 Nicotine dependence, cigarettes, uncomplicated; E78.5 Hyperlipidemia, unspecified; G25.81 Restless legs syndrome; F41.9 Anxiety disorder, unspecified; F32.A Depression, unspecified
CPT/HCPCS: 71046; 99213; G0463